=== PATIENT | female | born 2000 | race Caucasian/White ===

== ENCOUNTER 2020-10-17 19:22 | Emergency (ER) | payer OTHER ==
[~2020-10-17 19:22] MED LIST: NAPROXEN500 MG PO; NEXIUM20 MG PO; PYRIDIUM100 M1 PO; SERTRALINE HCL100 MG PO; ZOFRAN8 MG PO
[2020-10-17 20:14] LABS: BASOPHIL 0.8 % (0-2); EOSINOPHIL 2.4 % (0-5); HCT 39.1 % (37.0-47.0); MCH 29.3 pg (25.0-31.0); MCHC 33.2 g/dL (32.0-36.0); MCV 88.1 fL (78.0-100.0); MONOCYTE 11.1 % (0-12); NEUTROPHIL 58.4 % (41-80); NRBC 0; PLT 227 K/uL (150-400); RBC 4.44 M/uL (4.20-5.40); RDW 12.1 % (11.5-14.0); WBC 5.9 K/uL (4.0-10.5)
[2020-10-17 20:40] LABS: ALBUMIN 3.7 g/dL (3.4-5.0); BILIRUBIN - TOTAL 0.5 mg/dL (0.2-1.0); BUN/CREAT RATIO (CALC) 19.7 RATIO; CREATININE 0.66 mg/dL (0.51-0.95); GLOBULIN (CALCULATION) 3.4 g/dL; POTASSIUM 3.8 mmol/L (3.5-5.1); TOTAL PROTEIN 7.1 g/dL (6.4-8.2)
== END 2020-10-17 23:15 | disposition home or self-care (01) ==
LOC: FER 19:22
PROVIDERS: Emergency Medicine Emergency Medical Services
DX: R07.89 Other chest pain (principal); I49.9 Cardiac arrhythmia, unspecified; Z87.891 Personal history of nicotine dependence
CPT/HCPCS: 36415; 71046; 80053; 83690; 84484; 85025; 87339; 93005